=== PATIENT | female | born 1970 | race Asian ===

== ENCOUNTER 2022-10-13 18:00 | Emergency (ER) | payer MEDICAID ==
[~2022-10-13] VITALS: Ht 162.6 cm; Wt 54.4 kg
--- NOTE | 2022-10-13 18:00 | NUR ---
RECEIVED PT 52 YRS FEMAL CAME BY ALEJANDRO S/P YVETTE DIAMOND RT SIDE OF HEAD BY ANGELIQUE TODAY AT 1500 C/O HEADACK AWAKE AND ALERT NO WEEKNESS
--- NOTE | 2022-10-13 18:48 | NUR ---
DR ALMEIDA AT BEDSIDE FOR EVAL
[2022-10-13] MEDS ORDERED: DIAZEPAM 5 MG TABLET PO ONE (19:00)
[2022-10-13] MEDS ORDERED: ACETAMINOPHEN ES 500 MG TABLET PO ONE (19:00)
[2022-10-13] MEDS ORDERED: DIAZEPAM 5 MG TABLET ONE (19:02)
[2022-10-13] MEDS ORDERED: ACETAMINOPHEN ES 500 MG TABLET ONE (19:03)
--- NOTE | 2022-10-13 19:07 | NUR ---
PT TAKEN TO RADIOLOGY FOR CT
--- NOTE | 2022-10-13 19:19 | NUR ---
PT RETURNED FROM RADIOLOGY
--- NOTE | 2022-10-13 19:33 | NUR ---
HAND OFF JESSE RN
[2022-10-13 20:14] VITALS: BP 145/80
--- NOTE | 2022-10-13 20:14 | NUR ---
Patient discharged to home in stable condition. Written and verbal after care instructions given. Patient verbalizes understanding of instruction.
== END 2022-10-13 20:14 | disposition home or self-care (01) ==
LOC: ER 18:02
DX: S09.8XXA Other specified injuries of head, initial encounter (principal); F32.A Depression, unspecified; F41.9 Anxiety disorder, unspecified; Y08.89XA Assault by other specified means, initial encounter; Y93.89 Activity, other specified; Y92.89 Other specified places as the place of occurrence of the external cause; Y99.8 Other external cause status
CPT/HCPCS: 70450-TC